=== PATIENT | female | born 1980 | race Caucasian/White ===

== ENCOUNTER 2017-06-25 15:31 | Emergency (ER) | payer OTHER ==
[~2017-06-25] VITALS: Ht 157.5 cm; Wt 61.2 kg
[~2017-06-25 15:31] MED LIST: ADDERALL 20 MG20 M1 PO; FLEXERIL PO; HYDROCODON-ACE1 EAC7 PO; HYDROCORTISONE30 G9 RECTAL; LEXAPRO PO; LEXAPRO20 MG PO; MELOXICAM; MIDRIN CAPSULE1 CAP; MOTILIUM; NAPROSYN500 MG PO; NORCO 5-325 TA1 EACH PO; NORCO 7.5-3251 EACH PO; OSELB75 PO; TESSALON200 MG PO; TRAMADOL 50 MG50 MG PO; TUSSIONEX PENN473 ML PO; ULTRAM 50MG TAB50 MG PO; VICODIN 5-5001 EACH PO; WELLBUTRIN SR150 MG PO; XANAX 0.5 MG0.5 M1 PO; ZOFRAN ODT4 MG SUBLING; ZPAK PO
[2017-06-25 15:58] LABS: URINE BILIRUBIN NEGATIVE (Negative); URINE BLOOD NEGATIVE (Negative); URINE CLARITY HAZY; URINE COLOR YELLOW; URINE GLUCOSE-RANDOM NEGATIVE (Negative); URINE KETONES TRACE (Negative); URINE LEUKOCYTES-REFLEX TRACE (Negative); URINE NITRITE-REFLEX NEGATIVE (Negative); URINE PROTEIN TRACE (Negative); URINE SPECIFIC GRAVITY 1.025 (1.005-1.030); URINE UROBILINOGEN 0.2 E.U./dl (0.2-1.0)
[2017-06-25 16:14] LABS: BACTERIA-REFLEX 1-9 Few /HPF (None Seen); MUCUS 0-3 Light strn/LPF (None Seen); SQUAMOUS >10 Many /LPF (0-3); URINE RBC None Seen /HPF (0-2)
[2017-06-25 16:15] LABS: CASTS None Seen /LPF (None Seen); CRYSTALS None Seen /LPF (None Seen)
[2017-06-25 17:05] LABS: ABSOLUTE EOSINOPHILS 0.1 thou/uL (0.0-0.7); ABSOLUTE MONOCYTES 0.3 thou/uL (0.0-1.2); ABSOLUTE NEUTROPHILS 3.6 thou/uL (1.6-8.1); BASOPHILS 0.5 %; EOSINOPHILS 1.1 %; HEMATOCRIT 41.9 % (37.0-47.0); HEMOGLOBIN 14.5 gm/dL (12.0-15.0); LYMPHOCYTES 33.6 %; MCH 31.8 pg (26.0-34.0); MCHC 34.6 g/dL (28.0-37.0); MONOCYTES 4.5 %; MPV 6.7 fl. (7.2-11.1); NUCLEATED RBCS 0 /100WBC; PLATELET COUNT* 285 thou/uL (150-400); POLYS 60.3 %; RBC 4.55 mil/uL (4.20-5.00); RDW-CV 13.3 % (10.5-14.5); WBC 5.9 thou/uL (4.0-11.0)
[2017-06-25 17:14] LABS: CALCIUM 8.9 mg/dL (8.5-10.1); CREATININE 0.7 mg/dL (0.6-1.3); POTASSIUM 3.9 mmol/L (3.5-5.1)
[2017-06-25 17:18] LABS: ALBUMIN 3.9 g/dL (3.4-5.0); TOTAL BILIRUBIN 0.3 mg/dL (<0.1-1.0); TOTAL PROTEIN 7.3 g/dL (6.4-8.2)
[2017-06-25] MEDS ORDERED: PHENAZOPYRIDIN200 M2 PO (17:43)
[2017-06-25] MEDS ORDERED: CYCLOBENZAPRINE5 MG PO (17:43)
[2017-06-25] MEDS ORDERED: KEFLEX500 M1 PO (17:43)
[2017-06-25] MEDS ORDERED: IBUPROFEN 600600 M1 PO (17:43)
[2017-06-25 18:09] VITALS: BP 108/53
== END 2017-06-25 18:09 | disposition home or self-care (01) ==
LOC: M.ERS 15:31
PROVIDERS: Physician Assistant
DX: N39.0 Urinary tract infection, site not specified (principal); K02.9 Dental caries, unspecified; R51 Headache; Z90.49 Acquired absence of other specified parts of digestive tract; Z88.5 Allergy status to narcotic agent; Z88.1 Allergy status to other antibiotic agents; Z91.040 Latex allergy status; Z88.0 Allergy status to penicillin; Z88.8 Allergy status to other drugs, medicaments and biological substances

== ENCOUNTER 2017-08-03 00:32 | Emergency (ER) | payer OTHER ==
[~2017-08-03] VITALS: Ht 160 cm; Wt 59.0 kg
[~2017-08-03 00:32] MED LIST changes: +CYCLOBENZAPRINE5 MG PO; +IBUPROFEN 600600 M1 PO; +KEFLEX500 M1 PO; +PHENAZOPYRIDIN200 M2 PO
[2017-08-03 01:11] VITALS: BP 144/80
== END 2017-08-03 01:11 | disposition home or self-care (01) ==
LOC: M.ERS 00:32
DX: S90.31XA Contusion of right foot, initial encounter (principal); Z98.890 Other specified postprocedural states; Z88.5 Allergy status to narcotic agent; Z88.0 Allergy status to penicillin; Z91.040 Latex allergy status; Z88.1 Allergy status to other antibiotic agents; Z88.8 Allergy status to other drugs, medicaments and biological substances; X58.XXXA Exposure to other specified factors, initial encounter; Y93.89 Activity, other specified; Y92.524 Gas station as the place of occurrence of the external cause; Y99.0 Civilian activity done for income or pay